=== PATIENT | male | born 1970 | race Caucasian/White ===

== ENCOUNTER 2018-04-20 14:03 | Emergency (ER) | payer SELFPAY ==
[2018-04-20 14:13] VITALS: BP 121/78; PULSE 78; TEMP 98.1; BMI 25.0
--- NOTE | 2018-04-20 14:30 | PDOC ---
History of Present Illness - General Chief Complaint: Urinary Problem Stated Complaint: PAIN ON URINATION Time Seen by Provider: 04/20/18 14:30 History Source: Patient Exam Limitations: No Limitations Past History - Past Medical History Allergies/Adverse Reactions: Allergies Allergy/AdvReac Type Severity Reaction Status Date / Time No Known Allergies Allergy Verified 04/20/18 14:04 Home Medications: Ambulatory Orders NK [No Known Home Medication] 01/06/15 COPD: No Disorders: Yes (H/O FC USE) - Immunization History Immunization Up to Date: Yes - Suicide/Smoking/Psychosocial Hx Smoking History: Current every day smoker Have you smoked in the past 12 months: Yes Number of Cigarettes Smoked Daily: 10 Information on smoking cessation initiated: Yes 'Breaking Loose' booklet given: 01/06/15 Hx Alcohol Use: (occasional) Drug/Substance Use Hx: No Substance Use Type: None *Physical Exam - Vital Signs Last Vital Signs Temp Pulse Resp BP Pulse Ox 98.1 F 78 18 121/78 100 04/20/18 14:03 04/20/18 14:03 04/20/18 14:03 04/20/18 14:03 04/20/18 14:03 Moderate Sedation - Procedure Monitoring Vital Signs: Procedure Monitoring Vital Signs Temperature 98.1 F 04/20/18 14:03 Pulse Rate 78 04/20/18 14:03 Respiratory Rate 18 04/20/18 14:03 Blood Pressure 121/78 04/20/18 14:03 O2 Sat by Pulse Oximetry (%) 100 04/20/18 14:03 *DC/Admit/Observation/Transfer - Discharge Dispostion Condition at time of disposition: Stable - Referrals Referrals: Corin Craig MD [Primary Care Provider] - - Patient Instructions - Post Discharge Activity
[2018-04-20 14:51] LABS: PH,URINE 5.5 (4.5-8); URINE APPEARANCE Clear; URINE BILIRUBIN Negative (NEGATIVE); URINE COLOR Yellow; URINE GLUCOSE (UA) Negative (NEGATIVE); URINE KETONE Trace (NEGATIVE); URINE LEUK ESTERASE 1+ (NEGATIVE); URINE NITRITE Negative (NEGATIVE); URINE PROTEIN 1+ (NEGATIVE)
--- NOTE | 2018-04-20 15:05 | PDOC ---
Attending Attestation - Resident Resident Name: Gloria Contreras - ED Attending Attestation I have performed the following: I have examined & evaluated the patient, The case was reviewed & discussed with the resident, I agree w/resident's findings & plan
[2018-04-20 15:09] LABS: URINE RBC 20-40 /hpf (0-3)
[2018-04-20 15:10] LABS: EPI CELLS 1+ /HPF; URINE BACTERIA 4+ /hpf (NEGATIVE)
--- NOTE | 2018-04-20 15:17 | PDOC ---
History of Present Illness - General Chief Complaint: Urinary Problem Stated Complaint: PAIN ON URINATION Time Seen by Provider: 04/20/18 14:30 History Source: Patient Exam Limitations: No Limitations - History of Present Illness Initial Comments: 04/20/18 15:46 Coupe 47 YOM with h/o ureteral stricturing and penile reconstruction p/w dysuria , penile swelling x 2 days. Able to urinate, though some trickling and decreased stream. Has required self catheterization regularly to maintain patency and difficulty with urinary stream occurs, but has been unable to locate his catheter. The patient states he has used the same catheter for several years and cleaned it regularly with soap and water. He is unsure of the size of the catheter he had been using. The patient denies any discolored urine, unusual discharge from his penis or any pain while urinating or otherwise. No abdominal pain, back pain, n/v/d, fever or chills PMHX: The patients surgical history includes reconstructive surgery on the penis at the age of 12. Urologist: Dr Farrell 04/20/18 15:50 Past History - Past Medical History Allergies/Adverse Reactions: Allergies Allergy/AdvReac Type Severity Reaction Status Date / Time No Known Allergies Allergy Verified 04/20/18 14:04 Home Medications: Ambulatory Orders Phenazopyridine HCl [Pyridium -] 100 mg PO BID 2 Days #4 tablet 04/20/18 Sulfamethoxazole/Trimethoprim [Bactrim Ds -] 1 tab PO BID #14 tablet 04/20/18 COPD: No Disorders: Yes (H/O FC USE) - Immunization History Immunization Up to Date: Yes - Suicide/Smoking/Psychosocial Hx Smoking History: Current every day smoker Have you smoked in the past 12 months: Yes Number of Cigarettes Smoked Daily: 10 Information on smoking cessation initiated: Yes 'Breaking Loose' booklet given: 01/06/15 Hx Alcohol Use: (occasional) Drug/Substance Use Hx: No Substance Use Type: None Review of Systems - Review of Systems Able to Perform ROS?: Yes Comments:: 04/20/18 15:48 Constitutional: no fevers or chills. HEENT: no headache or dizziness. No congestion. No visual/hearing disturbances. CVS: no cp or syncope. Resp: no sob. No cough. Abdomen: no abdominal pain, nausea or vomiting. Genitourinary: +dysuria. +penile swelling. no discharge MUSCULOSKELETAL: No joint pain and swelling. No neck or back pain. SKIN: no redness or skin changes, no discharge, no rash. No wounds. Hematologic: no easy bruising/bleeding. NEUROLOGIC: No headache, dizziness All other systems reviewed and negative, or as documented in HPI. *Physical Exam - Vital Signs Last Vital Signs Temp Pulse Resp BP Pulse Ox 98.1 F 78 18 121/78 100 04/20/18 14:03 04/20/18 14:03 04/20/18 14:03 04/20/18 14:03 04/20/18 14:03 - Physical Exam Comments: 04/20/18 15:48 General: Well appearing, awake and alert, NAD. HEENT: NCAT, PERRL, EOMI, clear conjunctiva, anicteric, moist mucus membranes, clear oropharynx, no oral lesions.. Neck: neck supple, FROM Resp: CTAB, normal and even respirations, no respiratory distress CVS: RRR, no murmurs, 2+ peripheral pulses throughout, no peripheral edema. no CVAT. Abdomen: soft, NTND, no peritoneal signs. Genitourinary: swelling to penis, no discharge, +scar tissue palpated on ventral surface. +b/l cremaster reflex. nontender penis. no erythema or warmth. Back: nontender, normal inspection and ROM MSK: no edema, DOSS x4, ROM intact. No clubbing or cyanosis. normal bulk and tone. Extremities: no calf tenderness Neuro: alert, oriented appropriately; no focal neurologic deficits Skin: warm and well perfused, cap refill <2 sec, normal color 04/20/18 16:13 Moderate Sedation - Procedure Monitoring Vital Signs: Procedure Monitoring Vital Signs Temperature 98.1 F 04/20/18 14:03 Pulse Rate 78 04/20/18 14:03 Respiratory Rate 18 04/20/18 14:03 Blood Pressure 121/78 04/20/18 14:03 O2 Sat by Pulse Oximetry (%) 100 04/20/18 14:03 ED Treatment Course - ADDITIONAL ORDERS Additional order review: Laboratory Results 04/20/18 14:37 Urine Color Yellow Urine Appearance Clear Urine pH 5.5 D Ur Specific [place] 1.025 Urine Protein 1+ H Urine Glucose (UA) Negative Urine Ketones Trace Urine Blood 2+ H Urine Nitrite Negative Urine Bilirubin Negative Urine Urobilinogen 1.0 Ur Leukocyte Esterase 1+ H Urine RBC 20-40 Urine WBC 10-20 Ur Epithelial Cells 1+ Urine Bacteria 4+ Medical Decision Making - Medical Decision Making 04/20/18 15:50 hpi as documented vitals normal abdomen soft nontender attempts at urinary catheterization but unsuccessful with 14 Fr straight cath and 10 Fr adame (too floppy) when obstruction is hit near the glans penis, but he is able to void which we will leave alone. there is also a source for his dysuria, which is UTI. UA prelim +wbcs and bacteria and leuk esterase prior UCx +klebsiella in the past. checked sensititivities will f/u urine cultures. treat now with bactrim x [address] Cope [facility], agree with plan, treat infection, hold off on catheterization attempts. can f/u in office 04/23/18. return precautions discussed DC in stable condition, stay hydrated. bactrim x 1 week dosing and pyridium for urinary burning, side effect profile explained. pt verbalized understanding of impression and plan. 04/20/18 16:11 *DC/Admit/Observation/Transfer Diagnosis at time of Disposition: Urinary tract infection Qualifiers: Urinary tract infection type: acute cystitis Hematuria presence: with hematuria Qualified Code(s): N30.01 - Acute cystitis with hematuria - Discharge Dispostion Disposition: HOME Condition at time of disposition: Stable Decision to Admit order: No - Prescriptions Prescriptions: Phenazopyridine HCl [Pyridium -] 100 mg PO BID 2 Days #4 tablet Sulfamethoxazole/Trimethoprim [Bactrim Ds -] 1 tab PO BID #14 tablet - Referrals Referrals: Corin Craig MD [Primary Care Provider] - Kody Cope MD [Staff Physician] - - Patient Instructions Printed Discharge Instructions: DI for Urinary Tract Infection (UTI), DI for Urinary Retention in Men Additional Instructions: your urinalysis preliminary shows infection you are to take bactrim twice a day x 7 days. follow up on your urine cultures you can also take pyridium twice a day, that is for the burning. this can also cause orange discoloration of your urine. stay well hydrated make sure you can continue to urinate return to the ED (preferably [facility] where resources are available) if worsening symptoms including retention, increased pain, abdominal pain, back pain, fevers, discharge, respiratory distress, vomiting, or dehydration. you do not have to catheterize unless you need to based on your history follow up with Dr Cope, information provided, for a urology appointment on Monday04/23/18. - Post Discharge Activity
[2018-04-20] MEDS ORDERED: SULFAMETHOXAZOLE/TRIMETHOPRIM 800MG/160MG D.S. TABLET PO ONE (15:47)
[2018-04-20] MEDS ORDERED: SULFAMETHOXAZOLE/TRIMETHOPRIM 800MG/160MG D.S. TABLET ONE (16:01)
== END 2018-04-20 16:20 | disposition home or self-care (01) ==
LOC: FER 14:03
DX: N30.01 Acute cystitis with hematuria (principal)
CPT/HCPCS: 81003; 81015; 87086; 87186; 99283-25

== ENCOUNTER 2021-07-27 21:20 | Inpatient (IN) | payer SELFPAY ==
[2021-07-27] MEDS ORDERED: SODIUM CHLORIDE 1,000 ML ONE (21:36)
[2021-07-27] MEDS ORDERED: ACETAMINOPHEN 1000 MG/100 ML BAG IVPB ONE (21:40)
[2021-07-27] MEDS ORDERED: ACETAMINOPHEN INJECTION 100 ML IVPB ONE (22:03)
[2021-07-27] MEDS ORDERED: CEFTRIAXONE 1,000 MG in DEXTROSE 5%-WATER - 50 ML IVPB ONE (22:20)
[2021-07-27 22:25] LABS: ALBUMIN 3.9 g/dl (3.4-5.0); BILIRUBIN,TOTAL 1.5 mg/dl (0.2-1); TOT PROT 7.2 g/dl (6.4-8.2)
[2021-07-27] MEDS ORDERED: cefTRIAXone SODIUM 1 GM VIAL ONE (22:28)
[2021-07-27 22:43] LABS: CALCIUM 8.5 mg/dl (8.5-10)
[2021-07-28] MEDS: SODIUM CHLORIDE 1,000 ML IV SCH ×2 (00:16→03:57)
[2021-07-28 00:20] LABS: BASO % 0.7 % (0-2.0); EOS % 0.1 % (0-4.5); HEMATOCRIT 39.3 % (35.4-49); HEMOGLOBIN 13.4 GM/dL (11.7-16.9); MCH 30.7 pg (25.7-33.7); MCHC 34.1 g/dl (32.0-35.9); MONO % 8.4 % (3.8-10.2); NEUT % 83.8 % (42.8-82.8); PLATELET COUNT 153 10^3/uL (134-434); RBC 4.36 M/mm3 (4.00-5.60); RDW 13.1 % (11.9-15.9); WHITE BLOOD COUNT 11.3 K/mm3 (4.0-10.0)
[2021-07-28 00:33] LABS: SARS AG REFLEX COV19 SEND OUT negative (Negative)
[2021-07-28] MEDS ORDERED: IBUPROFEN 600 MG TABLET (FP) PO ONE ×2 (00:52)
[2021-07-28] MEDS ORDERED: SODIUM CHLORIDE 1,000 ML IV SCH (02:30)
[2021-07-28 08:06] LABS: ALBUMIN 3.3 g/dl (3.4-5.0); BILIRUBIN,TOTAL 1.7 mg/dl (0.2-1); TOT PROT 6.3 g/dl (6.4-8.2)
[2021-07-28 08:49] VITALS: BMI 21.4
[2021-07-28 09:38] LABS: BASO % 0.3 % (0-2.0); EOS % 0.2 % (0-4.5); HEMATOCRIT 38.1 % (35.4-49); HEMOGLOBIN 12.9 GM/dL (11.7-16.9); LYMPH % 7.4 % (8-40); MCH 30.7 pg (25.7-33.7); MCHC 33.9 g/dl (32.0-35.9); MEAN CELL VOLUME 90.6 fl (80-96); MEAN PLT VOLUME 8.4 fl (7.5-11.1); MONO % 10.6 % (3.8-10.2); NEUT % 81.5 % (42.8-82.8); PLATELET COUNT 126 10^3/uL (134-434); RBC 4.21 M/mm3 (4.00-5.60); RDW 13.2 % (11.9-15.9); WHITE BLOOD COUNT 16.6 K/mm3 (4.0-10.0)
[2021-07-28] MEDS ORDERED: CEFTRIAXONE 1 GM in DEXTROSE 5%-WATER - 50 ML IVPB SCH (10:00)
[2021-07-28] MEDS ORDERED: cefTRIAXone SODIUM 1 GM VIAL ONE (10:13)
[2021-07-28] MEDS ORDERED: DEXTROSE 5%-WATER - 50 ML IVPB ONE ×3 (10:13→23:42)
[2021-07-28] MEDS ORDERED: PIPERACILLIN/TAZOBACTAM 3.375 GM VIAL IVPB ONE ×2 (17:53→23:42)
[2021-07-28] MEDS: PIPERACILLIN/TAZOB 3.375 GM 3.375 GM in DEXTROSE 5%-WATER - 50 ML IVPB SCH (18:00)
[2021-07-29] MEDS: PIPERACILLIN/TAZOB 3.375 GM 3.375 GM in DEXTROSE 5%-WATER - 50 ML IVPB SCH ×2 (02:13→09:49)
[2021-07-29 07:46] LABS: ALBUMIN 2.9 g/dl (3.4-5.0); BILIRUBIN,TOTAL 0.7 mg/dl (0.2-1); CALCIUM 8.2 mg/dl (8.5-10); MAGNESIUM 1.9 mg/dL (1.8-2.4); TOT PROT 5.7 g/dl (6.4-8.2)
[2021-07-29 08:15] LABS: HEMOGLOBIN 12.4 GM/dL (11.7-16.9); MCH 31.3 pg (25.7-33.7); MCHC 34.5 g/dl (32.0-35.9); MEAN CELL VOLUME 90.8 fl (80-96); MEAN PLT VOLUME 7.9 fl (7.5-11.1); PLATELET COUNT 137 10^3/uL (134-434); RBC 3.96 M/mm3 (4.00-5.60); RDW 13.1 % (11.9-15.9); WHITE BLOOD COUNT 7.5 K/mm3 (4.0-10.0)
[2021-07-29] MEDS ORDERED: DEXTROSE 5%-WATER - 50 ML IVPB ONE (09:34)
[2021-07-29] MEDS ORDERED: PIPERACILLIN/TAZOBACTAM 3.375 GM VIAL IVPB ONE (09:34)
[2021-07-29] MEDS: TAMSULOSIN HCL 0.4 MG CAP PO SCH (09:49)
[2021-07-29 11:06] LABS: ANISOCYTOSIS 1+; MACROCYTOSIS 0; OVALOCYTE 1+
[2021-07-29 11:10] LABS: SARS-CoV-2 NAA Not Detected (Not Detected)
[2021-07-29] MEDS: ENOXAPARIN NA (PORCINE) 40 MG/0.4 ML DISP.SYRIN SQ SCH (11:54)
[2021-07-29] MEDS: SODIUM CHLORIDE 1,000 ML IV SCH (11:55)
[2021-07-29] MEDS ORDERED: SODIUM CHLORIDE 1,000 ML IV STA (11:57)
[2021-07-29] MEDS ORDERED: MEROPENEM 1 GM VIAL (RESTRICTED TO ID) IVPB ONE (17:08)
[2021-07-29] MEDS ORDERED: DEXTROSE 5%-WATER 100 ML IVPB ONE (17:08)
[2021-07-29] MEDS: MEROPENEM 1 GM in DEXTROSE 5%-WATER 100 ML IVPB SCH (17:29)
[2021-07-30] MEDS ORDERED: DEXTROSE 5%-WATER 100 ML IVPB ONE ×4 (00:15→23:47)
[2021-07-30] MEDS ORDERED: MEROPENEM 1 GM VIAL (RESTRICTED TO ID) IVPB ONE ×4 (00:16→23:48)
[2021-07-30] MEDS: MEROPENEM 1 GM in DEXTROSE 5%-WATER 100 ML IVPB SCH ×3 (01:03→17:32)
[2021-07-30] MEDS: TAMSULOSIN HCL 0.4 MG CAP PO SCH (08:32)
[2021-07-30] MEDS: ENOXAPARIN NA (PORCINE) 40 MG/0.4 ML DISP.SYRIN SQ SCH (09:15)
[2021-07-30 09:55] LABS: BASO % 1.1 % (0-2.0); EOS % 4.8 % (0-4.5); HEMATOCRIT 36.6 % (35.4-49); HEMOGLOBIN 12.5 GM/dL (11.7-16.9); LYMPH % 29.8 % (8-40); MCH 31.2 pg (25.7-33.7); MCHC 34.2 g/dl (32.0-35.9); MEAN CELL VOLUME 91.5 fl (80-96); MEAN PLT VOLUME 8.5 fl (7.5-11.1); MONO % 12.2 % (3.8-10.2); NEUT % 52.1 % (42.8-82.8); PLATELET COUNT 161 10^3/uL (134-434); RDW 13.6 % (11.9-15.9); WHITE BLOOD COUNT 5.5 K/mm3 (4.0-10.0)
[2021-07-30 10:09] LABS: MAGNESIUM 2.2 mg/dL (1.8-2.4)
[2021-07-30 10:11] LABS: ALBUMIN 2.9 g/dl (3.4-5.0); CALCIUM 8.1 mg/dL (8.5-10.1)
[2021-07-30 10:12] LABS: BLOOD UREA NITROGEN 9.2 mg/dL (7-18)
[2021-07-30 10:15] LABS: BILIRUBIN,TOTAL 0.4 mg/dL (0.2-1); CREATININE 0.7 mg/dL (0.55-1.3); TOT PROT 5.9 g/dl (6.4-8.2)
[2021-07-30] MEDS: SODIUM CHLORIDE 1,000 ML IV SCH (10:30)
[2021-07-31] MEDS: MEROPENEM 1 GM in DEXTROSE 5%-WATER 100 ML IVPB SCH ×3 (01:19→17:59)
[2021-07-31] MEDS ORDERED: DEXTROSE 5%-WATER 100 ML IVPB ONE ×2 (09:28→17:14)
[2021-07-31] MEDS ORDERED: MEROPENEM 1 GM VIAL (RESTRICTED TO ID) IVPB ONE ×2 (09:29→17:14)
[2021-07-31] MEDS: ENOXAPARIN NA (PORCINE) 40 MG/0.4 ML DISP.SYRIN SQ SCH (09:35)
[2021-07-31] MEDS: TAMSULOSIN HCL 0.4 MG CAP PO SCH (09:35)
[2021-07-31] MEDS: SODIUM CHLORIDE 1,000 ML IV SCH (09:35)
[2021-07-31 09:52] LABS: BASO % 1.4 % (0-2.0); EOS % 5.3 % (0-4.5); HEMATOCRIT 37.8 % (35.4-49); HEMOGLOBIN 12.7 GM/dL (11.7-16.9); LYMPH % 40.1 % (8-40); MCH 30.8 pg (25.7-33.7); MCHC 33.6 g/dl (32.0-35.9); MEAN CELL VOLUME 91.7 fl (80-96); MEAN PLT VOLUME 8.4 fl (7.5-11.1); MONO % 9.3 % (3.8-10.2); NEUT % 43.9 % (42.8-82.8); PLATELET COUNT 211 10^3/uL (134-434); RBC 4.12 M/mm3 (4.00-5.60); RDW 13.6 % (11.9-15.9); WHITE BLOOD COUNT 5.8 K/mm3 (4.0-10.0)
[2021-07-31 10:06] LABS: CALCIUM 8.4 mg/dL (8.5-10.1)
[2021-07-31 10:07] LABS: BLOOD UREA NITROGEN 10.7 mg/dL (7-18); MAGNESIUM 2.3 mg/dL (1.8-2.4)
[2021-07-31 10:10] LABS: CREATININE 0.6 mg/dL (0.55-1.3)
[2021-07-31 10:12] LABS: BILIRUBIN,TOTAL 0.4 mg/dL (0.2-1); TOT PROT 6.2 g/dl (6.4-8.2)
[2021-08-01] MEDS ORDERED: DEXTROSE 5%-WATER 100 ML IVPB ONE ×4 (01:08→23:59)
[2021-08-01] MEDS ORDERED: MEROPENEM 1 GM VIAL (RESTRICTED TO ID) IVPB ONE ×3 (01:08→17:16)
[2021-08-01] MEDS: MEROPENEM 1 GM in DEXTROSE 5%-WATER 100 ML IVPB SCH ×3 (01:49→18:06)
[2021-08-01] MEDS: ENOXAPARIN NA (PORCINE) 40 MG/0.4 ML DISP.SYRIN SQ SCH (09:30)
[2021-08-01] MEDS: TAMSULOSIN HCL 0.4 MG CAP PO SCH (09:30)
[2021-08-01] MEDS: SODIUM CHLORIDE 1,000 ML IV SCH (09:30)
[2021-08-01] MEDS: FAMOTIDINE 20 MG TABLET PO SCH (11:08)
[2021-08-02] MEDS: MEROPENEM 1 GM in DEXTROSE 5%-WATER 100 ML IVPB SCH ×3 (01:16→17:07)
[2021-08-02] MEDS ORDERED: DEXTROSE 5%-WATER 100 ML IVPB ONE ×2 (09:11→16:51)
[2021-08-02] MEDS ORDERED: MEROPENEM 1 GM VIAL (RESTRICTED TO ID) IVPB ONE ×3 (09:12→16:51)
[2021-08-02] MEDS: FAMOTIDINE 20 MG TABLET PO SCH (09:17)
[2021-08-02] MEDS: TAMSULOSIN HCL 0.4 MG CAP PO SCH (09:17)
[2021-08-02] MEDS: ENOXAPARIN NA (PORCINE) 40 MG/0.4 ML DISP.SYRIN SQ SCH (09:18)
[2021-08-02 10:37] LABS: BLOOD UREA NITROGEN 11.5 mg/dL (7-18); CALCIUM 8.2 mg/dL (8.5-10.1)
[2021-08-02 10:41] LABS: BILIRUBIN,DIRECT 0.2 mg/dL (0.0-0.2); CREATININE 0.8 mg/dL (0.55-1.3)
[2021-08-02 10:43] LABS: BILIRUBIN,TOTAL 0.3 mg/dL (0.2-1); TOT PROT 6.5 g/dl (6.4-8.2)
[2021-08-03] MEDS ORDERED: DEXTROSE 5%-WATER 100 ML IVPB ONE ×4 (00:41→17:51)
[2021-08-03] MEDS: MEROPENEM 1 GM in DEXTROSE 5%-WATER 100 ML IVPB SCH ×3 (01:20→17:56)
[2021-08-03] MEDS ORDERED: MEROPENEM 1 GM VIAL (RESTRICTED TO ID) IVPB ONE ×2 (09:13→17:52)
[2021-08-03] MEDS: FAMOTIDINE 20 MG TABLET PO SCH (09:15)
[2021-08-03] MEDS: ENOXAPARIN NA (PORCINE) 40 MG/0.4 ML DISP.SYRIN SQ SCH (09:15)
[2021-08-03] MEDS: TAMSULOSIN HCL 0.4 MG CAP PO SCH (09:15)
[2021-08-04] MEDS ORDERED: DEXTROSE 5%-WATER 100 ML IVPB ONE ×3 (00:10→17:17)
[2021-08-04] MEDS ORDERED: MEROPENEM 1 GM VIAL (RESTRICTED TO ID) IVPB ONE ×3 (00:10→17:17)
[2021-08-04] MEDS: MEROPENEM 1 GM in DEXTROSE 5%-WATER 100 ML IVPB SCH ×3 (02:01→17:27)
[2021-08-04] MEDS: ENOXAPARIN NA (PORCINE) 40 MG/0.4 ML DISP.SYRIN SQ SCH (09:16)
[2021-08-04] MEDS: FAMOTIDINE 20 MG TABLET PO SCH (09:16)
[2021-08-04] MEDS: TAMSULOSIN HCL 0.4 MG CAP PO SCH (09:16)
[2021-08-05] MEDS: MEROPENEM 1 GM in DEXTROSE 5%-WATER 100 ML IVPB SCH ×2 (02:00→10:18)
[2021-08-05] MEDS ORDERED: DEXTROSE 5%-WATER 100 ML IVPB ONE ×2 (02:56→10:02)
[2021-08-05] MEDS ORDERED: MEROPENEM 1 GM VIAL (RESTRICTED TO ID) IVPB ONE ×2 (02:57→10:02)
[2021-08-05 09:44] VITALS: BP 102/52; PULSE 57; TEMP 97.8
[2021-08-05] MEDS: TAMSULOSIN HCL 0.4 MG CAP PO SCH (10:17)
[2021-08-05] MEDS: FAMOTIDINE 20 MG TABLET PO SCH (10:17)
[2021-08-05] MEDS: ENOXAPARIN NA (PORCINE) 40 MG/0.4 ML DISP.SYRIN SQ SCH (10:18)
== END 2021-08-05 13:28 | disposition home or self-care (01) | DRG 720 ==
LOC: FER 21:20 → FM/S 07-28 01:37
PROVIDERS: ADMIT Internal Medicine; ATTEND Nurse Practitioner Acute Care
DX: A41.9 Sepsis, unspecified organism (principal); N48.22 Cellulitis of corpus cavernosum and penis; N39.0 Urinary tract infection, site not specified; E87.1 Hypo-osmolality and hyponatremia; D72.829 Elevated white blood cell count, unspecified; F17.210 Nicotine dependence, cigarettes, uncomplicated; N28.82 Megaloureter; B96.1 Klebsiella pneumoniae [K. pneumoniae] as the cause of diseases classified elsewhere; R58 Hemorrhage, not elsewhere classified; L29.9 Pruritus, unspecified
CPT/HCPCS: 36415; 71046-TC-FY; 80048; 80053; 80076; 81003; 81015; 82306; 83605; 83735; 84443; 85025; 87040; 87077; 87086; 87186; 87426; 93005; 93306-TC; 97116-GP; 97162-GP; 99285-25; C9803-CS; U0003; U0005

== ENCOUNTER 2022-02-12 19:38 | Emergency (ER) | payer OTHER ==
[2022-02-12 19:58] VITALS: BP 115/70; PULSE 61; RESP 16; TEMP 97.9; BMI 22.7
== END 2022-02-12 20:08 | disposition home or self-care (01) ==
LOC: FER 19:38
DX: K40.90 Unilateral inguinal hernia, without obstruction or gangrene, not specified as recurrent (principal)
CPT/HCPCS: 99283-25

== ENCOUNTER 2022-03-15 04:23 | Day surgery (SDC) | payer OTHER ==
[2022-03-11 16:25] VITALS: BMI 22.7
[2022-03-15] MEDS ORDERED: BUPIVACAINE HCL/PF 0.5% (5MG/ML) 10 ML VIAL ONE (09:16)
[2022-03-15] MEDS ORDERED: MIDAZOLAM HCL 2 MG/2 ML SINGLE DOSE VIAL ONE ×2 (09:16→09:48)
[2022-03-15] MEDS ORDERED: BUPIVACAINE LIPOSOME/PF (EXPAREL) 266 MG/20 ML VIAL ONE (09:16)
[2022-03-15] MEDS ORDERED: DEXAMETHASONE SOD PHOSPHATE 4 MG/1 ML VIAL ONE (09:48)
[2022-03-15] MEDS ORDERED: PROPOFOL 20 ML ONE (09:48)
[2022-03-15] MEDS ORDERED: ROCURONIUM BROMIDE 50 MG/5 ML SYRINGE ONE (09:48)
[2022-03-15] MEDS ORDERED: LIDOCAINE HCL/PF 2% SDV 5ML VIAL ONE (09:48)
[2022-03-15] MEDS ORDERED: ONDANSETRON 4 MG/2 ML VIAL ONE (09:48)
[2022-03-15] MEDS ORDERED: ceFAZolin SODIUM 1 GM VIAL ONE (10:18)
[2022-03-15] MEDS ORDERED: ceFAZolin SODIUM 1 GM VIAL IVPB ONE (10:20)
[2022-03-15] MEDS ORDERED: SEVOFLURANE 250 ML BTL ONE (11:01)
[2022-03-15] MEDS ORDERED: KETOROLAC TROMETHAMINE 15 MG/ML VIAL IVPUSH ONE ×2 (11:54→12:19)
[2022-03-15] MEDS ORDERED: KETOROLAC TROMETHAMINE 30 MG/1 ML VIAL ONE (12:16)
[2022-03-15] MEDS ORDERED: ACETAMINOPHEN 500 MG TABLET (FP) PO ONE (13:00)
[2022-03-15] MEDS ORDERED: oxyCODONE HCL 5 MG TABLET PO PRN ×2 (13:34)
[2022-03-15] MEDS ORDERED: ONDANSETRON 4 MG/2 ML VIAL IVPUSH PRN (13:34)
[2022-03-15] MEDS ORDERED: LACTATED RINGERS SOLUTION 1,000 ML IV SCH (13:45)
[2022-03-15 18:04] VITALS: BP 113/78; PULSE 70; RESP 18; TEMP 98.4
== END 2022-03-15 15:30 | disposition home or self-care (01) ==
LOC: JASU-SURG 04:23
PROVIDERS: ATTEND Surgery
PROC: 0YU50JZ Supplement Right Inguinal Region with Synthetic Substitute, Open Approach (ICD-10-PCS; principal; 2022-03-15 10:00)
DX: K40.90 Unilateral inguinal hernia, without obstruction or gangrene, not specified as recurrent (principal)
CPT/HCPCS: 88302-TC; 94760; C1781

== ENCOUNTER 2022-11-25 21:19 | Emergency (ER) | payer OTHER ==
[2022-11-25 22:01] VITALS: BP 149/90; PULSE 85; RESP 18; TEMP 98.9; BMI 24.6
[2022-11-25] MEDS ORDERED: morphine CARPU-JECT 2 MG/1 ML DISP.SYRIN IVPUSH ONE ×2 (22:25→23:28)
[2022-11-25] MEDS ORDERED: morphine SULFATE 4 MG/ML VIAL ONE (22:40)
[2022-11-25] MEDS ORDERED: ONDANSETRON 4 MG/2 ML VIAL ONE ×2 (22:40→23:28)
[2022-11-25 23:02] LABS: ALBUMIN 4.5 g/dl (3.4-5.0); BILIRUBIN,TOTAL 0.7 mg/dl (0.2-1); BLOOD UREA NITROGEN 11.7 mg/dl (7-18); CALCIUM 8.8 mg/dl (8.5-10.1); CREATININE 0.9 mg/dl (0.6-1.3); HEMOGLOBIN 14.8 G/dL (11.7-16.9); MCH 32.2 pg (25.7-33.7); MCHC 33.7 g/dl (32.0-35.9); MEAN CELL VOLUME 95.4 fl (80-96); MEAN PLT VOLUME 7.8 fl (7.5-11.1); POTASSIUM 4.1 mmol/L (3.5-5.1); RBC 4.61 10^6/uL (4.00-5.60); RDW 14.3 % (11.9-15.9); SGOT/AST 22.9 U/L (15-37); SGPT/ALT 18.6 U/L (7-52); WHITE BLOOD COUNT 17.3 10^3/uL (4.0-10.8)
[2022-11-25] MEDS ORDERED: SODIUM CHLORIDE 1,000 ML IV ONE (23:16)
[2022-11-25] MEDS ORDERED: ONDANSETRON 4 MG/2 ML VIAL IVPUSH ONE ×2 (23:16→23:28)
[2022-11-26] MEDS ORDERED: CEFTRIAXONE 1,000 MG in DEXTROSE 5%-WATER - 50 ML IVPB ONE (04:03)
[2022-11-26] MEDS ORDERED: cefTRIAXone SODIUM 1 GM VIAL ONE (04:27)
== END 2022-11-26 08:16 | disposition home or self-care (01) ==
LOC: FER 21:19
PROC: 3E033GC Introduction of Other Therapeutic Substance into Peripheral Vein, Percutaneous Approach (ICD-10-PCS; 2022-11-25)
PROC: 3E033GC Introduction of Other Therapeutic Substance into Peripheral Vein, Percutaneous Approach (ICD-10-PCS; 2022-11-25)
PROC: 3E033GC Introduction of Other Therapeutic Substance into Peripheral Vein, Percutaneous Approach (ICD-10-PCS; 2022-11-25)
PROC: 3E0337Z Introduction of Electrolytic and Water Balance Substance into Peripheral Vein, Percutaneous Approach (ICD-10-PCS; 2022-11-25)
PROC: 3E03329 Introduction of Other Anti-infective into Peripheral Vein, Percutaneous Approach (ICD-10-PCS; principal; 2022-11-26)
DX: R11.10 Vomiting, unspecified (principal); N49.2 Inflammatory disorders of scrotum; R10.32 Left lower quadrant pain; N45.1 Epididymitis; N50.82 Scrotal pain; Z20.822 Contact with and (suspected) exposure to COVID-19
CPT/HCPCS: 36415; 74177-TC; 76870-TC; 80053; 81003; 81015; 83605; 85027; 87077; 87086; 87635; 99285-25; Q9967